=== PATIENT | male | born 1945 | race Hispanic/Latino ===

== ENCOUNTER 2017-09-13 11:56 | Outpatient (CLI) | payer BC ==
--- NOTE | 2017-09-13 23:52 | XRay Report ---
FINAL REPORT PROCEDURE: XR SPINE LUMBOSACRAL 2-3V TECHNIQUE: Lumbar spine radiographs, including AP, lateral, and lumbosacral spot views. CPT 19709 HISTORY: LOW BACK PAIN COMPARISON: No prior studies are available for comparison. FINDINGS: Alignment: Mild right convex lower thoracic lumbar scoliosis. Vertebral body heights/Disk spaces: The heights of the vertebral bodies and the disc spaces are maintained. Mild spur formation off the vertebral bodies.. Fracture(s): None. Facets: Normal. Bone mineralization: Normal. IMPRESSION: There is no evidence of an acute fracture or dislocation. Mild lumbar spondylosis.
== END 2017-09-13 11:57 | disposition home or self-care (01) ==
LOC: SPVIMAG 11:56
PROVIDERS: ATTEND Physical Medicine & Rehabilitation
DX: M47.896 Other spondylosis, lumbar region (principal); M41.85 Other forms of scoliosis, thoracolumbar region
CPT/HCPCS: 72100